=== PATIENT | female | born 1980 | race African-American/Black ===

== ENCOUNTER 2021-01-24 08:00 | Day surgery (SDC) | payer OTHER ==
[~2021-01-24] VITALS: Ht 167.6 cm; Wt 86.8 kg
[~2021-01-24 08:00] MED LIST: HYDROmorphone 2 MG/ML VIAL IVP PRN; IV RINGERS,LACTATED 1000ML 1,000 ML IV SCH; MULT-496 PO; TRAN650T PO; fentaNYL PF VIAL 100 MCG/2 ML VIAL IVP PRN
[2021-01-24 09:00] VITALS: BP 119/76
[2021-01-24 09:14] LABS: BASO % 1 % (0-3); EOS % 1 % (0-3); HEMOGLOBIN 7.6 g/dL (12.0-15.5); LYMPH # 1.6 x10^3/uL (1.0-4.8); LYMPH % 19 % (24-48); MEAN CORPUSCULAR HEMOGLOBIN 26 pg (25-35); MEAN CORPUSCULAR HGB CONC 32 g/dL (31-37); MEAN CORPUSCULAR VOLUME 83 fL (79-100); MONO # 0.4 x10^3/uL (0.0-1.1); MONO % 4 % (0-9); NEUT # 6.6 x10^3/uL (1.8-7.7); NEUT % 76 % (31-73); PLATELET COUNT 235 x10^3/uL (140-400); RED CELL DISTRIBUTION WIDTH 17.8 % (11.5-14.5); WHITE BLOOD COUNT 8.7 x10^3/uL (4.0-11.0)
[2021-01-24] MEDS ORDERED: PROPOFOL 10 MG/ML (20ML) VIAL. IV ONE (09:43)
[2021-01-24] MEDS ORDERED: ONDANSETRON PF 4 MG/2 ML VIAL. ONE (09:44)
[2021-01-24] MEDS ORDERED: DEXAMETHASONE SOD PHOS 4 MG/ML VIAL ONE (09:44)
[2021-01-24] MEDS ORDERED: IRON SUCROSE COMPLEX 500 MG in IV NORMAL SALINE 250ML 250 ML IV ONE (09:45)
[2021-01-24] MEDS ORDERED: METHYLERGONOVINE MALEATE 0.2 MG/ML VIAL. IM ONE (10:45)
[2021-01-24] MEDS ORDERED: MAG HYDROX/ALUMINUM HYD/SIMETH 30 ML ORAL.SUSP PO PRN (11:00)
[2021-01-24] MEDS ORDERED: diphenhydrAMINE 50 MG/ML VIAL IV PRN (11:00)
[2021-01-24] MEDS ORDERED: HYDROcodone/APAP 5/325MG 1 TAB TABLET PO PRN (11:00)
[2021-01-24] MEDS ORDERED: 0.9 % SODIUM CHLORIDE 10 ML DISP.SYRIN. IV PRN (11:00)
[2021-01-24] MEDS ORDERED: PROCHLORPERAZINE 10 MG/2 ML VIAL. ONE (11:00)
[2021-01-24] MEDS ORDERED: fentaNYL PF VIAL 100 MCG/2 ML VIAL ONE (11:00)
[2021-01-24] MEDS ORDERED: KETOROLAC 30 MG/ML VIAL. ONE (11:00)
[2021-01-24] MEDS ORDERED: CALCIUM CARBONATE 500 MG TAB.CHEW PO PRN (11:00)
[2021-01-24] MEDS ORDERED: SIMETHICONE 80 MG TAB.CHEW PO PRN (11:00)
[2021-01-24] MEDS ORDERED: NALOXONE 0.4 MG/ML VIAL. IV PRN (11:00)
[2021-01-24] MEDS ORDERED: diphenhydrAMINE HCL 25 MG CAPSULE PO PRN (11:00)
--- NOTE | 2021-01-24 11:04 | PDOC4 ---
BRIEF OPERATIVE NOTE Date: Jan 24, 2021 Pre-Op Diagnosis DUB, anemia, prolapsing fibroid Post-Op Diagnosis same Procedure Performed removal of prolapsing submucosal fibroid, h/s D&C with myosure Surgeon Dr. Viera Cloth Napping Supervisor RHONDA Mccarty Anesthesiologist Dr. Breaux Anesthesia Type: General Blood Loss 50cc IV Fluid 300cc Urine Output 30cc straight cath prior to procedure Specimens Obtained submucosal fibroid and endometrial currettings Findings large 6ish cm prolapsing fibroid through the cervix dilating it at least 4cm then slightly enlarged uterine cavity, normal bilateral tubal ostia and some tissue removed Complications none Operative Note [id number] DARIUSZ VIERA MD Jan 24, 2021 11:04
[2021-01-24] MEDS: fentaNYL PF VIAL 100 MCG/2 ML VIAL IVP PRN ×2 (11:05→11:15)
[2021-01-24] MEDS: PROCHLORPERAZINE 10 MG/2 ML VIAL. IVP PRN ×2 (11:06→11:38)
[2021-01-24 11:14] LABS: HEMATOCRIT 24.3 % (36.0-47.0); HEMOGLOBIN 7.6 g/dL (12.0-15.5); RED BLOOD COUNT 2.92 x10^6/uL (3.50-5.40); RED CELL DISTRIBUTION WIDTH 17.5 % (11.5-14.5); WHITE BLOOD COUNT 7.7 x10^3/uL (4.0-11.0)
[2021-01-24] MEDS ORDERED: KETOROLAC 30 MG/ML VIAL. IVP ONE (11:15)
[2021-01-24] MEDS ORDERED: MORPHINE SULFATE 2 MG/ML INJ. ONE (11:37)
[2021-01-24] MEDS: MORPHINE SULFATE 2 MG/ML INJ. IVP PRN ×2 (11:39→11:58)
--- NOTE | 2021-01-24 11:40 | OP ---
DATE OF SURGERY: 01/24/2021 PREOPERATIVE DIAGNOSES: Dysfunctional uterine bleeding, anemia and a prolapsing fibroid. POSTOPERATIVE DIAGNOSES: Dysfunctional uterine bleeding, anemia and a prolapsing fibroid. PROCEDURES: Removal of the prolapsing submucosal fibroid and a hysteroscopy, D and C with MyoSure. SURGEON: Fartun Beatty MD FRUIT TRIMMER: RHONDA Mccarty. ANESTHESIOLOGIST: Abelino Manecra MD ANESTHESIA: General. BLOOD LOSS: 50 mL. URINE OUTPUT: 30 mL straight cath prior to procedure. INTRAVENOUS FLUIDS: 300 mL of crystalloid. SPECIMENS: A large 6 cm prolapsing submucosal fibroid and endometrial curettings. COMPLICATIONS: None. Cut time was 3 minutes and 40 seconds with the MyoSure Reach. DESCRIPTION OF PROCEDURE: This patient was taken to the operating room where general anesthesia was placed. The patient was placed in dorsal lithotomy position in Mayur stirrups. The patient's vagina was prepped and draped in the normal sterile fashion and a straight cath urine was done prior to my arrival. Upon my arrival, a timeout was performed. Once everyone agreed on the patient, the site, the procedure, the antibiotics, the procedure was initiated. A weighted speculum was placed in the patient's vagina and the large prolapsing submucosal fibroid was seen dilating the cervix to approximately 4. It was grasped with a single tooth tenaculum and was twisted off. Once this was done, the scope was placed in. I had to use a double tooth and single tooth on either side of the hysteroscope to clamp down the cervix to prevent the back flow of the fluid and maintain the water and pressure inside the uterine cavity as she was so dilated from that fibroid. Bilateral tubal ostia were clearly seen. She was mildly dilated, enlarged cavity was sounded, but both tubal ostia were seen. There was some residual tissue, so the MyoSure Reach was obtained and 3 minutes and 40 seconds of cut time, got quite a bit of tissue out and cleaned up the cavity. At the end, the cavity was clear. There was no active bleeding, like I said. It was a nice hollow cavity. Nothing was protruding into it. No residual polyps, fibroids, or any tissue were observed. Both tubal ostia were clearly seen and the procedure was ended. The deficit settled at about 250 mL and she was still bleeding a little bit from that open dilated 3-4 cm cervical os, so bimanual massage was done and 0.2 of Methergine was given with excellent results. Once this was done, the procedure was ended. All counts were correct by OR personnel. The patient was awakened from anesthesia and brought to recovery room in stable condition. MARGE/DAMON DR: Shilo TID: [id number]
[2021-01-24] MEDS ORDERED: HYDR-2761 PO (11:50)
[2021-01-24] MEDS ORDERED: HYDROcodone/APAP 5/325MG 1 TAB TABLET PO ONE ×2 (12:00)
[2021-01-24 15:00] VITALS: BP 114/66
--- NOTE | 2021-01-26 19:08 | PATHOLOGY ---
[facility] Accession Number: [id number] . 01 Material submitted: . uterus - SUBMUCOSAL FIBROID AND INTRAUTERINE TISSUE . 01 Clinical history: . FIBROIDS OPERATIVE HYSTERECTOMY, REMOVAL OF PROLAPSING FIBROIDS . 02 Diagnosis: Uterus "submucosal fibroid and uterine tissue", excision: - Fragments of benign endometrial tissue, with secretory pattern and focal stromal breakdown and lysis; negative for hyperplasia, atypia and malignancy. - Multiple fragments of benign leiomyoma. (JOHN:j luis; 01/26/2021) MBR 01/26/2021 1846 Local . 02 Electronically signed: . Shira Luis MD, Pathologist NPI- [id number] . 01 Gross description: . The specimen is received in formalin, labeled "Venancio Robin, submucosal fibroid and intrauterine tissue". Received is a 40 g fibroid measuring 6.2 x 4.3 x 4.0 cm in greatest dimensions. Sectioning reveals white-mckeon, fibrous, whorled cut surfaces with no gross evidence of degeneration or necrosis. The specimen is submitted representatively in cassettes A1 through A3. . Also received within the specimen container are multiple segments of pale mckeon tissue admixed with blood coagulum measuring 4.5 x 3.8 x 0.7 cm in aggregate dimensions. The specimen is filtered and entirely submitted in cassettes A4 through A10. (CAA; 01/25/2021) QAC/QAC 01/25/2021 1427 Local . 02 Pathologist provided ICD-10: D25.9, N85.8 . 02 CPT . 614358 Specimen Comment: A courtesy copy of this report has been sent to [phone], [phone] Specimen Comment: [id number] Specimen Comment: Report sent to / DR QUINONES Specimen Comment: A duplicate report has been generated due to demographic updates. Performed at: 01 [facility] [id number] [facility] [address], [place] [id number] MD Grady Uriostegui MD Phone: [phone] Performed at: 02 [facility] [address] [place], [place] [id number] MD Hiram Melendez MD Phone: [phone]
== END 2021-01-24 15:15 | disposition home or self-care (01) ==
LOC: SURG 08:00
PROVIDERS: ATTEND Obstetrics & Gynecology
DX: N93.8 Other specified abnormal uterine and vaginal bleeding (principal); N92.0 Excessive and frequent menstruation with regular cycle; D25.0 Submucous leiomyoma of uterus; N85.8 Other specified noninflammatory disorders of uterus; M19.90 Unspecified osteoarthritis, unspecified site; F41.9 Anxiety disorder, unspecified; Z87.891 Personal history of nicotine dependence; Z79.899 Other long term (current) drug therapy; Z98.890 Other specified postprocedural states
CPT/HCPCS: 36415; 58561; 81025; 85025; 85027; 86850; 86900; 86901; A4930; J0690; J0780; J1100; J1756; J1885; J2210; J2270; J2405; J2704; J3010; J7050; J7030